=== PATIENT | male | born 1970 | race Caucasian/White ===

== ENCOUNTER 2016-09-21 13:07 | Inpatient (IN) | payer OTHER ==
[2016-09-21] MEDS ORDERED: HEPARIN/ 0.45% NACL-25,000 UNIT/500 ML 500 ML ONE (13:08)
[2016-09-21] MEDS ORDERED: ZOFRAN IV ONE (13:17)
[2016-09-21] MEDS ORDERED: NITRO-BID 2% TP ONE (13:17)
[2016-09-21] MEDS ORDERED: MORPHINE IV ONE (13:17)
[2016-09-21 13:23] LABS: Basophils % (Auto) 0.1 % (0.0-1.8); Eosinophils % (Auto) 0.6 % (0.0-4.3); Hematocrit 41.4 % (35.5-45.6); Hemoglobin 13.5 gm/dl (11.8-15.2); Mean Corpuscular HGB Conc 33 % (32-34); Mean Corpuscular Hemoglobin 28 pg (28-32); Mean Corpuscular Volume 87 fl (84-94); Platelet Count 223 K/mm3 (140-440); Red Blood Count 4.79 M/mm3 (3.65-5.03); Red Cell Distribution Width 13.5 % (13.2-15.2); White Blood Count 8.6 K/mm3 (4.5-11.0)
--- NOTE | 2016-09-21 13:23 | Emergency Department Report ---
HPI - General Chief Complaint: Chest Pain Time Seen by Provider: 09/21/16 13:16 - HPI HPI: Room 23 The patient is a 46-year-old male presenting with a chief complaint of chest pain. The patient states approximately 3-4 hours ago he developed substernal chest pain that was sharp in nature. Patient states she had numbness in both hands and intermittent sharp shooting pain down both lower extremities. The patient states he did get short of breath, and developed nausea with 2 episodes of vomiting. Patient denies diaphoresis. The patient states his pain is currently a 5/10. Patient was seen initially at [facility]. The ED physician at [place] had attempted to send the patient to [facility] however the control panel builder already had a patient on the table at the [facility]. The control panel builder subsequently spoke with Dr. Yokasta castro at [facility]. 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) Additional medical history: recurrent herpes simplex labialis, lumbosacral spondylosis, LVH, - Surgical History Past Surgical History?: Yes Additional Surgical History: lumbar fusion - Family History Family history: no significant - Social History Smoking Status: Never Smoker - Medications Home Medications: Home Medications Medication Instructions Recorded Confirmed Last Taken Type Hydrochlorothiazide [HCTZ] 25 mg PO QDAY 09/21/16 09/21/16 1 Day Ago History amLODIPine [Norvasc] 10 mg PO DAILY 09/21/16 09/21/16 1 Day Ago History ED Review of Systems ROS: Stated complaint: STEMI ALERT Other details as noted in HPI Comment: All other systems reviewed and negative Constitutional: denies: chills, diaphoresis, fever Eyes: denies: eye pain, eye discharge, vision change ENT: denies: ear pain, throat pain Respiratory: shortness of breath Cardiovascular: chest pain Endocrine: no symptoms reported Gastrointestinal: nausea, vomiting Genitourinary: denies: urgency, dysuria Musculoskeletal: denies: back pain, joint swelling, arthralgia Skin: denies: rash, lesions Neurological: denies: headache, weakness, paresthesias Psychiatric: denies: anxiety, depression Hematological/Lymphatic: denies: easy bleeding, easy bruising Physical Exam - Physical Exam Vital Signs: Vital Signs 09/21/16 13:09 Temperature 98 F Pulse Rate 91 H Respiratory 16 Rate Blood Pressure 132/88 O2 Sat by Pulse 100 Oximetry Physical Exam: GENERAL: The patient is well-developed well-nourished male lying on stretcher appearing to be in mild discomfort. [] HEENT: Normocephalic. Atraumatic. Extraocular motions are intact. Patient has moist mucous membranes. NECK: Supple. Trachea midline CHEST/LUNGS: Clear to auscultation. There is no respiratory distress noted. HEART/CARDIOVASCULAR: Regular. There is no tachycardia. There is no gallop rub or murmur. ABDOMEN: Abdomen is soft, nontender. Patient has normal bowel sounds. There is no abdominal distention. SKIN: There is no rash. There is no edema. There is no diaphoresis. NEURO: The patient is awake, alert, and oriented. The patient is cooperative. The patient has normal speech MUSCULOSKELETAL: There is no evidence of acute injury. ED Course Vital Signs 09/21/16 13:09 Temperature 98 F Pulse Rate 91 H Respiratory 16 Rate Blood Pressure 132/88 O2 Sat by Pulse 100 Oximetry - Consultations Consultation #1: 09/21/16 13:[address] Templeton. States he is reviewed the EKGs performed at [facility] today as well as the patient's previous EKG and EMS EKG. States does not believe it represents a STEMI. Requests an update when labs are resulted ED Medical Decision Making - Lab Data Result diagrams: 09/21/16 13:11 09/21/16 13:11 Laboratory Tests 09/21/16 09/21/16 09/21/16 13:11 13:11 13:11 WBC 8.6 RBC 4.79 Hgb 13.5 Hct 41.4 MCV 87 MCH 28 MCHC 33 RDW 13.5 Plt Count 223 Lymph % (Auto) 6.0 L [place] % (Auto) 6.5 Eos % (Auto) 0.6 Baso % (Auto) 0.1 Lymph # 0.5 L [place] # 0.6 Eos # 0.0 Baso # 0.0 Seg Neutrophils % 86.8 H Seg Neutrophils # 7.5 PT 14.3 INR 1.12 Sodium 140 Potassium 4.0 Chloride 101.5 Carbon Dioxide 26 Anion Gap 17 BUN 13 Creatinine 0.8 Estimated GFR > 60 BUN/Creatinine Ratio 16.25 Glucose 91 Calcium 8.8 Total Creatine Kinase 240 H CK-MB (CK-2) 2.4 CK-MB (CK-2) Rel Index 1.0 Troponin T < 0.010 NT-Pro-B Natriuret Pep 23.78 - EKG Data -: EKG Interpreted by Me EKG shows normal: sinus rhythm Rate: normal - EKG Data When compared to previous EKG there are: no significant change Interpretation: unchanged when compared t (09/07/2014 (from [facility])) - Radiology Data Radiology results: report reviewed (CT chest), image reviewed (CT chest) CT chest (read by radiologist)-no evidence for pulmonary embolus. Unremarkable CT chest with contrast. - Differential Diagnosis ACS, non-STEMI, pericarditis, aortic dissection Critical care attestation.: If time is entered above; I have spent that time in minutes in the direct care of this critically ill patient, excluding procedure time. ED Disposition Clinical Impression: Acute chest pain Disposition: OP ADMITTED IP TO THIS HOSP Is pt being admited?: Yes Does the pt Need Aspirin: Yes Condition: Fair Instructions: Chest Pain (ED) Referrals: PRIMARY CARE, [Primary Care Provider] - 3-5 Days Time of Disposition: 14:46 (hospitalist paged)
[2016-09-21] MEDS ORDERED: MORPHINE ONE (13:27)
[2016-09-21 13:34] LABS: INR 1.12 (0.87-1.13)
[2016-09-21 13:39] LABS: Creatine Kinase MB 2.4 ng/mL (0.0-4.0)
[2016-09-21 13:42] LABS: Anion Gap 17 mmol/L; BUN/Creatinine Ratio 16.25; Blood Urea Nitrogen 13 mg/dL (9-20); Calcium 8.8 mg/dL (8.4-10.2); Carbon Dioxide 26 mmol/L (22-30); Chloride 101.5 mmol/L (98-107); Creatine Kinase 240 units/L (55-170); Glucose 91 mg/dL (75-100); Sodium 140 mmol/L (137-145)
[2016-09-21 13:48] LABS: Partial Thromboplastin Time < 20.0 Sec. (24.2-36.6)
--- NOTE | 2016-09-21 13:49 | Admit Criteria Form ---
Admission Criteria Documentation: CARDIOLOGY GRG Clinical Indications for Admission to Inpatient Care ( Place 'X' for any and all applicable criteria): Hospital admission is needed for appropriate care of the patient because of ANY ONE of the following (1): [ ] I. Hemodynamic instability as indicated by ALL of the following (1)(2)(3) (4)(5) [ ]a) Vital signs or other findings not as expected for chronic patient condition or baseline [ ]b) Instability indicated by ANY ONE of the following: [ ]i) Hypotension [ ]ii) Symptomatic Tachycardia unresponsive to treatment ( e.g., analgesia, fluids, sedation as indicated) [ ]iii) Inadequate perfusion indicated by ANY ONE of the following: [ ] 1) Lactic acidosis (> 2 mmol/L) [ ] 2) New abnormal capillary refill (> 3 seconds) [ ] 3) Reduced urine output [ ] 4) New altered mental status [ ]iv) Orthostatic vital sign changes unresponsive to treatment (e.g., fluids) [ ]v) IV inotropic or vasopressor medication required to maintain adequate blood pressure or perfusion [ ] II. Severe heart failure as indicated by ANY ONE of the following(17)(18) [ ]a) Respiratory distress [ ]b) Hypotension [ ]c) Anasarca (refractory to outpatient therapy) [ ]d) Cardiac arrhythmias of immediate concern [ ]e) Myocardial ischemia [ ] III. Cardiac arrhythmias or findings of immediate concern indicated by ANY ONE of the following (19)(20): [ ] a) Heart rhythms that are inherently dangerous or unstable indicated by ANY ONE of the following (21)(22)(23): [ ] i) Resuscitated ventricular fibrillation or cardiac arrest [ ] ii) Ventricular escape rhythm [ ] iii) Sustained ventricular tachycardia (30 seconds or more of ventricular rhythm at greater than 100 beats per minute) [ ] iv) Nonsustained ventricular tachycardia and ANY ONE of the following: [ ] 1) Suspected cardiac ischemia as cause or consequence of ventricular tachycardia [ ] 2) In setting of acute myocarditis [ ] b) Unstable cardiac conduction defects indicated by ANY ONE of the following(23)(24)(25) [ ] i) Type II second-degree atrioventricular block [ ]ii) Third-degree atrioventricular block [ ]iii) New-onset left bundle branch block with suspected myocardial ischemia [ ]c) Any heart rhythm and ANY ONE of the following (21)(22)(26)(27) (28) [ ] i) Continuous long-term ECG monitoring needed (e.g., initiation of drug requiring monitoring for more than 24 hours) [ ] ii) Patient has automatic implanted cardioverter defibrillator that is repeatedly firing, malfunctioning, or in need of immediate adjustment of settings beyond the scope of ambulatory or observation care [ ]d) Heart rhythms of concern due to ANY ONE of the following: [ ] i) Hypotension [ ] ii) Respiratory distress [ ] iii) Association with other significant symptoms (e.g., bradycardia with syncope or ongoing dizziness, supraventricular tachycardia with chest pain (14)(15)(17) [ ] IV. Monitoring for cardiac contusion beyond the scope of observation care needed [A](30)(31)(32) [ ] V. Surgical or device complication (e.g., valve replacement complication , pacemaker dysfunction) (35)(41)(44)(45)(46) [ ] . Inpatient palliative care needed. [B](49) Also use Inpatient Palliative Care Criteria [ ] VII. Nonbacterial thrombotic (marantic) endocarditis (36)(43)(47)(48) [X ] VIII. Cardiology condition, symptom, or finding for which emergency and observation care has failed or are not considered appropriate. [ ] IX. Acute valvular disease requiring inpatient as indicated by ANY ONE of the following (41) [ ]a) Acute valvular regurgitation (42) [ ]b) Noninfectious valvulitis (43) [ ]c) Obstructive valve thrombosis [ ]d) Paravalvular leak [ ]e) Other significant valvular disorder remaining after emergency or observation level of care (as appropriate) [ ]X. Pericardial disease requiring inpatient treatment as indicated by ANY ONE of the following (33)(34)(35)(36)(37) [ ]a) Suspected tamponade (38)(39)(40) [ ]b) Hemopericardium [ ]c) Other significant pericardial disorder remaining after emergency or observation level of care (as appropriate) [ ] XI. Cardiac ischemia beyond scope of emergency and observation care. [ ] XII. Hypertension requiring inpatient treatment as indicated by ANY ONE of the following (6)(7)(8) [ ]a) SBP greater than 220 mm Hg or DBP greater than 120 mmHg despite treatment [ ]b) SBP greater than 140 mm Hg or DBP greater than 100 mm Hg with evidence of acute end organ damage as indicated by ANY ONE of the following [ ] i) Altered mental status [ ] ii) Acute renal failure as indicated by new onset of ANY ONE of the following (9)(10)(11)(12)(13) [ ]1) 3-fold rise in serum creatinine from baseline [ ]2) Serum creatinine greater than 4 mg/dL ( 354 micromoles/L) with acute rise greater than 0.5 mg/dL (44.2 micromoles/L) [ ]3) Reduction of more than 75% in estimated glomerular filtration rate from baseline [ ]4) Estimated glomerular filtration rate less than 35 mL/min/1.73m2 (0.59 mL/sec/1.73m2) in child up to 18 years of age [ ]5) Cessation of urine output indicated by ALL of the following [ ]A. Adequate volume status [ ]B. Inadequate urine output as indicated by ANY ONE of the following [ ]a. Urine output less than 0.3 mL/kg/hr for 24 hours [ ]b. Anuria (urine output less than 0.1 mL/kg/hr) for 12 hours [ ] iii) Aortic dissection [ ] iv) Myocardial Ischemia [ ] v) Left ventricular heart failure [ ]vi) Retinal Hemorrhage [ ]vii) Other significant finding [ ]c) Hypertension in child requiring inpatient treatment as indicated by ALL of the following(14)(15)(16) [ ] i) Outpatient treatment not effective, not available, or not appropriate [ ]ii) SBP or DBP greater than 95th percentile for age [ ]iii) Evidence of acute end organ damage as indicated by ANY ONE of the following [ ]1) Altered mental status [ ]2) Acute renal failure as indicated by new onset of ANY ONE of the following(9)(10)(11)(12)(13) [ ]A. 3-fold rise in serum creatinine from baseline [ ]B. Serum creatinine greater than 4 mg/dL (354 micromoles/L) with acute rise greater than 0.5 mg/dL (44.2 micromoles/L) [ ]C. Reduction of more than 75% in estimated glomerular filtration rate from baseline [ ]D. Estimated glomerular filtration rate less than 35 mL/min/1.73m2 (0.59 mL/sec/1.73m2) in child up to 18 years of age [ ]E. Cessation of urine output indicated by ALL of the following [ ]a. Adequate volume status [ ]b. Inadequate urine output as indicated by ANY ONE of the following [ ]i) Urine output less than 0.3 mL/kg/hr for 24 hours [ ]ii) Anuria ( urine output less than 0.1 mL/kg/hr) for 12 hours [ ]3) Severe headache [ ]4) Visual disturbance [ ]5) Retinal hemorrhage [ ]6) Other significant finding [ ]XIII. Complications of transplanted heart indicated by ANY ONE of the following(61): [ ]a) Acute graft rejection requiring inpatient management (eg, intravenous immunosuppression)(62)(63) [ ]b) Acute graft heart failure indicated by ANY ONE of the following(64): [ ]i) Hemodynamic instability [ ]ii) Cardiac arrhythmias of immediate concern [ ]iii) Pulmonary edema that is very severe (eg, mechanical ventilation needed, imminent or likely, need for 100% oxygen to keep oxygen saturation above 90%) [ ]iv) Pulmonary edema that is persistent as indicated by ALL of the following: [ ]1) New need for oxygen therapy to keep oxygen saturation above 90% (or increased FiO2 need from baseline) [ ]2) Has not improved sufficiently with emergency department or observation care IV diuretics or other heart failure treatments[E] [ ]v) Altered mental status that is severe or persistent [ ]vi) Increased creatinine (new on laboratory test) with reduction of more than 50% in estimated glomerular filtration rate from baseline [ ]vii) Progressively (ongoing) rising creatinine (known from past laboratory test) with reduction of more than 25% in estimated glomerular filtration rate from baseline [ ]viii) Acute renal failure [ ]ix) Acute peripheral ischemia (eg, examination shows pulseless, cool, mottled, or cyanotic extremity) [ ]x) Pulmonary artery catheter monitoring needed [ ]xi) Other sign or symptom of heart failure requiring inpatient treatment (ie, too severe or not responsive to outpatient and observation care treatment) [ ]c) Infection requiring inpatient management (eg, Hemodynamic instability, need for intravenous antimicrobial treatment)(66)(67)(68)(69)(70) [ ]d) Cardiac allograft vasculopathy requiring inpatient management ( eg evidence of cardiac ischemia)(71) [ ]e) Other complication of transplanted heart (eg, stroke, severe pulmonary hypertension, severe valvular dysfunction) requiring inpatient management(72) The original [facility] [employer] content created by [facility] [employer]now [employer] has been revised. The portions of the content which have been revised are identified through the use of italic text or in bold, and [facility] has neither reviewed nor approved the modified material. All other unmodified content is copyright [facility] [employer]. Please see references footnoted in the original [facility] [employer] edition 2016
[2016-09-21] MEDS ORDERED: SUBLIMAZE ONE (14:35)
[2016-09-21] MEDS ORDERED: PEPCID IV ONE (14:37)
[2016-09-21] MEDS ORDERED: SUBLIMAZE IV ONE (14:37)
--- NOTE | 2016-09-21 14:43 | Cat Scan Report ---
CTA CHEST: History: Chest pain. Technique: Helical CT following IV contrast. Pulmonary embolus protocol. Sagittal and coronal reformatted images. Rotational MIP images. Findings: Contrast bolus is satisfactory. No pulmonary embolus is identified. The thyroid gland, tracheobronchial tree, esophagus, heart, pericardium, mediastinal vessels, lung odonnell and bony thorax are unremarkable. Impression: No evidence for pulmonary embolus. Unremarkable CT chest with contrast.
[2016-09-21] MEDS ORDERED: ALUM-MAG HYDROX-SIMETH 200-200-20MG/5ML ONE (14:47)
[2016-09-21] MEDS ORDERED: LIDOCAINE VISCOUS 2% ONE ×2 (14:47→19:29)
--- NOTE | 2016-09-21 14:50 | Consultation ---
Addendum entered and electronically signed by CLARKE POPE MD 09/21/16 17:47 : This patient's a 46-year-old man with a history of hypertension, patient of [facility]. He was transferred to the emergency room today, for further evaluation of chest pain and abnormal EKG. His chest pain is atypical, substernal but nonexertional, no associated shortness of breath, no palpitations. He is very physically active and has had no recent chest pain or exercise intolerance until this morning when he developed the pain. We reviewed his serial ECGs. He has a normal sinus rhythm, with left ventricular hypertrophy. There is early repolarization changes, affecting predominantly the lateral leads 1 and aVL. ECGs were compared to his historical ECG from 2015, and there are no significant changes. CT a of the chest, was negative for pulmonary embolism, and otherwise unremarkable. Initial cardiac enzymes were normal. Recommendations: Chest pain is atypical, differential diagnosis includes gastroesophageal reflux , musculoskeletal chest pain. In addition to acid reflux therapy, we'll also recommend a rule out [place] protocol. A thallium stress test be planned rule out [place] protocol is negative. Original Note: History of Present Illness Consult date: 09/21/16 Consult reason: chest pain History of present illness: This is a 46yr old male who presents to the ED with complaints of chest pain. Patient reports sharp mid sternal chest pain that's has been ongoing for several hours. He denies worsening chest pain on exertion. He was seen by his physician at [facility] today and advised to come to the ED for evaluation. He reports a history of Hypertension. There is no history of coronary disease. He denies tobacco abuse. His ECG shows a sinus rhythm with early repolarization. No change from prior ECG done a 2 years ago. First set of cardiac enzymes are normal. Cardiology consultation requested for further evaluation. Medications and Allergies Allergies Allergy/AdvReac Type Severity Reaction Status Date / Time acetaminophen [From Percocet] Allergy Unknown Verified 09/21/16 13:17 oxycodone HCl [From Percocet] Allergy Unknown Verified 09/21/16 13:17 Home Medications Medication Instructions Recorded Confirmed Last Taken Type Hydrochlorothiazide [HCTZ] 25 mg PO QDAY 09/21/16 09/21/16 1 Day Ago History amLODIPine [Norvasc] 10 mg PO DAILY 09/21/16 09/21/16 1 Day Ago History Physical Examination Vital Signs Temp Pulse Resp BP Pulse Ox 98 F 91 H 16 132/88 100 09/21/16 13:09 09/21/16 13:09 09/21/16 13:09 09/21/16 13:09 09/21/16 13:09 General appearance: mild distress HEENT: Positive: PERRL Neck: Positive: trachea midline Cardiac: Positive: Reg Rate and Rhythm Lungs: Positive: Decreased Breath Sounds Neuro: Positive: Grossly Intact Extremities: Absent: edema Results 09/21/16 13:11 09/21/16 13:11 Cardiac Enzymes 09/21/16 Range/Units 13:11 CK-MB (CK-2) 2.4 (0.0-4.0) ng/mL Coagulation 09/21/16 Range/Units 13:11 PT 14.3 (12.2-14.9) Sec. INR 1.12 (0.87-1.13) APTT < 20.0 L (24.2-36.6) Sec. CBC 09/21/16 Range/Units 13:11 WBC 8.6 (4.5-11.0) K/mm3 RBC 4.79 (3.65-5.03) M/mm3 Hgb 13.5 (11.8-15.2) gm/dl Hct 41.4 (35.5-45.6) % Plt Count 223 (140-440) K/mm3 Lymph # 0.5 L (1.2-5.4) K/mm3 [place] # 0.6 (0.0-0.8) K/mm3 Eos # 0.0 (0.0-0.4) K/mm3 Baso # 0.0 (0.0-0.1) K/mm3 Comprehensive Metabolic Panel 09/21/16 Range/Units 13:11 Sodium 140 (137-145) mmol/L Potassium 4.0 (3.6-5.0) mmol/L Chloride 101.5 (98-107) mmol/L Carbon Dioxide 26 (22-30) mmol/L BUN 13 (9-20) mg/dL Creatinine 0.8 (0.8-1.5) mg/dL Glucose 91 (75-100) mg/dL Calcium 8.8 (8.4-10.2) mg/dL EKG interpretations - Telemetry EKG Rhythm: Sinus Rhythm Assessment and Plan Chest pain first set of cardiac enzymes are normal Hypertension Recommend: Rule out PE protocol. Cycle cardiac enzymes.
[2016-09-21] MEDS ORDERED: REGLAN ONE (14:52)
[2016-09-21] MEDS ORDERED: REGLAN IV ONE (14:54)
[2016-09-21] MEDS ORDERED: LIDOCAINE VISCOUS 2% PO ONE (14:59)
[2016-09-21] MEDS ORDERED: ALUM-MAG HYDROX-SIMETH 200-200-20MG/5ML PO ONE (15:00)
--- NOTE | 2016-09-21 16:46 | History and Physical Report ---
History of Present Illness Date of examination: 09/21/16 Date of admission: 09/21/16 Chief complaint: chest pain this morning History of present illness: Mr Muñoz is a 46 yo AAM presented to the emergency room with central chest pain, 8 out of 10, no radiation, no aggravating or relieving factors, intermittent and sticking in nature. He also had several episodes of nausea and vomiting since this morning. Admits to having some mild upper abdominal pain. Of note he's been taking Advil on and off for a while now for back pain. He also had some shortness of breath while he had the pain. No palpitations. No diaphoresis. He was initially seen at [facility] and sent to the ER for evaluation of an STEMI based on his EKG. He was seen in the emergency room by the herbarium worker and it was felt that she had LVH with repolarization changes. At the time of evaluation he had no chest pain but vomited during the evaluation. He reported that he had a stress test about a year ago for evaluation of chest pain which was normal then. No history of heart attacks in the past. Past History Past Medical History: hypertension Past Surgical History: Other (back) Social history: full code. denies: smoking, alcohol abuse, prescription drug abuse, IV drug use Family history: hypertension Medications and Allergies Allergies Allergy/AdvReac Type Severity Reaction Status Date / Time acetaminophen [From Percocet] Allergy Unknown Verified 09/21/16 13:17 oxycodone HCl [From Percocet] Allergy Unknown Verified 09/21/16 13:17 Home Medications Medication Instructions Recorded Confirmed Last Taken Type Hydrochlorothiazide [HCTZ] 25 mg PO QDAY 09/21/16 09/21/16 1 Day Ago History amLODIPine [Norvasc] 10 mg PO DAILY 09/21/16 09/21/16 1 Day Ago History Review of Systems All systems: negative Constitutional: no weight loss, no weight gain, no fever, no anorexia, no fatigue, no weakness Ears, nose, mouth and throat: no ear pain, no ear discharge, no tinnitis, no decreased hearing, no nose pain Cardiovascular: no chest pain, no orthopnea, no palpitations, no rapid/ irregular heart beat Respiratory: no cough, no cough with sputum, no excessive sputum, no hemoptysis Gastrointestinal: abdominal pain, nausea, vomiting Genitourinary Male: no dysuria, no hematuria, no flank pain, no discharge Rectal: no pain, no incontinence, no bleeding Musculoskeletal: no neck stiffness, no neck pain, no shooting arm pain, no arm numbness/tingling Integumentary: no rash, no pruritis, no redness, no sores Neurological: no head injury, no transient paralysis, no paralysis, no weakness , no parathesias Psychiatric: no anxiety, no memory loss, no change in sleep habits, no sleep disturbances Endocrine: no cold intolerance, no heat intolerance, no polyphagia, no excessive thirst Hematologic/Lymphatic: no easy bruising, no easy bleeding Allergic/Immunologic: no urticaria, no allergic rhinitis Exam - Constitutional Vitals: Temp Pulse Resp BP Pulse Ox 98 F 83 15 144/94 99 09/21/16 13:09 09/21/16 14:30 09/21/16 14:30 09/21/16 16:18 09/21/16 14:30 General appearance: Present: no acute distress, well-nourished - EENT Eyes: Present: PERRL, EOM intact. Absent: scleral icterus, conjunctival injection ENT: hearing intact, clear oral mucosa, no oropharyngeal erythema, no poor dentition - Neck Neck: Present: supple, normal ROM. Absent: enlarged thyroid, masses or JVD - Respiratory Respiratory effort: normal Respiratory: negative: diminished, rales, rhonchi, wheezing - Cardiovascular Rhythm: regular Heart Sounds: Present: S1 & S2. Absent: gallop - Extremities Extremities: no ischemia, pulses intact, pulses symmetrical Peripheral Pulses: within normal limits - Abdominal General gastrointestinal: Present: soft, tender (epigasatrium), non-distended, normal bowel sounds Male genitourinary: Present: deferred - Rectal Rectal Exam: deferred - Integumentary Integumentary: Present: clear - Musculoskeletal Musculoskeletal: strength equal bilaterally - Psychiatric Psychiatric: appropriate mood/affect, intact judgment & insight, cooperative - Neurologic Neurologic: CNII-XII intact, moves all extremities Results - Labs CBC & Chem 7: 09/21/16 13:11 09/21/16 13:11 Labs: Abnormal lab results 09/21/16 09/21/16 09/21/16 Range/Units 13:11 13:11 13:11 Lymph % (Auto) 6.0 L (13.4-35.0) % Lymph # 0.5 L (1.2-5.4) K/mm3 Seg Neutrophils % 86.8 H (40.0-70.0) % APTT < 20.0 L (24.2-36.6) Sec. Total Creatine Kinase 240 H (55-170) units/L - Imaging and Cardiology EKG: image reviewed (LVH with repolarization ) CT scan - chest: report reviewed (no PE; unremarkable) Assessment and Plan 1. Atypical chest pain - rule out acute coronary syndrome versus gastric pathology. We'll admit as inpatient as more than 2 midnights are required for treatment. We'll follow-up with serial cardiac enzymes. We'll check lipid panel and echocardiogram. We'll follow-up with cardiology consultation to determine if stress test is indicated. Nitroglycerin as needed for pain. IV Dilaudid as patient reports that he cannot take IV morphine 2. Possible gastritis / duodenitis/ duodenal ucler - history of NSAID use, will put patient on IV antiemetic and IV PPI. We'll consult GI 3. Benign hypertension-restart home medications; 2gm NA diet as tolerated 4. DVT Prophylaxis-lovenox
[2016-09-21] MEDS ORDERED: PHENERGAN PR PRN (17:04)
[2016-09-21] MEDS ORDERED: DILAUDID ONE (17:14)
[2016-09-21] MEDS ORDERED: SODIUM CHLORIDE FLUSH SYRINGE 10 ML IV PRN (17:15)
[2016-09-21] MEDS ORDERED: NITROSTAT SL PRN (17:15)
[2016-09-21] MEDS ORDERED: REGLAN IV PRN (17:15)
[2016-09-21] MEDS: DILAUDID IV PRN (17:20)
[2016-09-21 20:45] LABS: Creatine Kinase MB 1.6 ng/mL (0.0-4.0)
[2016-09-21 20:46] LABS: Creatine Kinase 182 units/L (55-170)
[2016-09-21] MEDS: ZOFRAN IV PRN (22:55)
[2016-09-22 01:31] LABS: Creatine Kinase 158 units/L (55-170); Creatine Kinase MB 1.2 ng/mL (0.0-4.0)
--- NOTE | 2016-09-22 07:49 | Gastroenterology Consultation ---
History of Present Illness - Reason for Consult Consult date: 09/22/16 Chest pain/upper abdominal pain Requesting physician: HELEN SIERRA - History of Present Illness 46yo man admitted with chest pain, upper abdominal pain, nausea/vomiting. CE's neg x 3 today, awaiting stress test today. Pt mentions that he has had upper abdominal pain for "a long time." He denies any heartburn, difficulty swallowing and states that he saw an outside GI years back. Mr. Muñoz has also been taking various NSAIDS for headaches, including Advil/Goody's Powders. No black stools, BRBPR. No weight loss, fevers, chills, night sweats. No CP/ SOB at this time. Past History Past Medical History: hypertension Past Surgical History: Other (back) Social history: full code. denies: smoking, alcohol abuse, prescription drug abuse, IV drug use Family history: hypertension Medications and Allergies Allergies Allergy/AdvReac Type Severity Reaction Status Date / Time acetaminophen [From Percocet] Allergy Unknown Verified 09/21/16 13:17 oxycodone HCl [From Percocet] Allergy Unknown Verified 09/21/16 13:17 Home Medications Medication Instructions Recorded Confirmed Last Taken Type Hydrochlorothiazide [HCTZ] 25 mg PO QDAY 09/21/16 09/21/16 1 Day Ago History amLODIPine [Norvasc] 10 mg PO DAILY 09/21/16 09/21/16 1 Day Ago History Active Meds: Active Medications Amlodipine Besylate (Norvasc) 10 mg PO DAILY [facility] Aspirin (Ecotrin) 325 mg PO QDAY CHET Enoxaparin Sodium (Lovenox) 40 mg SUB-Q QDAY CHET Hydrochlorothiazide (Hctz) 25 mg PO QDAY [facility] Hydromorphone HCl (Dilaudid) 1 mg IV Q4H PRN PRN Reason: Pain , Severe (7-10) Last Admin: 09/21/16 17:20 Dose: 1 mg Ketorolac Tromethamine (Toradol) 15 mg IV Q6HR CHET Stop: 09/27/16 07:59 Metoclopramide HCl (Reglan) 10 mg IV Q6H PRN PRN Reason: Nausea And Vomiting Nitroglycerin (Nitrostat) 0.4 mg SL Q5M PRN PRN Reason: Chest Pain Ondansetron HCl (Zofran) 4 mg IV Q4H PRN PRN Reason: Nausea And Vomiting Last Admin: 09/21/16 22:55 Dose: 4 mg Pantoprazole Sodium (Protonix) 40 mg PO QDAY CHET Promethazine HCl (Phenergan) 50 mg [place] Q6H PRN PRN Reason: Nausea And Vomiting Sodium Chloride (Sodium Chloride Flush Syringe 10 Ml) 10 ml IV PRN PRN PRN Reason: LINE FLUSH Review of Systems - Review of Systems All systems: negative (initial CP, abd pain, N/V) Exam - Constitutional Vital Signs: Temp Pulse Resp BP Pulse Ox 98.6 F 78 20 112/76 98 09/22/16 07:00 09/22/16 07:00 09/22/16 07:00 09/22/16 07:00 09/22/16 07:00 General appearance: no acute distress - EENT Eyes: PERRL - Neck Neck: supple - Respiratory Respiratory: bilateral: CTA - Cardiovascular Rhythm: regular Heart Sounds: Present: S1 & S2 Extremities: No edema - Gastrointestinal General gastrointestinal: Present: soft, non-tender, non-distended, normal bowel sounds - Integumentary Integumentary: Present: clear - Neurologic Neurological: alert and oriented x3 - Psychiatric Psychiatric: appropriate mood/affect - Labs CBC & Chem 7: 09/21/16 13:11 09/21/16 13:11 Lab Results: Laboratory Results - last 24 hr 09/21/16 09/22/16 19:49 00:46 Total Creatine Kinase 182 H 158 CK-MB (CK-2) 1.6 1.2 CK-MB (CK-2) Rel Index 0.8 0.7 Troponin T < 0.010 < 0.010 Assessment and Plan 46yo man admitted with chest pain, upper abdominal pain, nausea/vomiting. CE's neg x 3, but still awaiting stress test. No further symptoms at this time. This may represent atypical CP and he may have gastritis/esophagitis/PUD/GERD. Rec: 1) Would give empiric trial of PPI 2) Given resolution of symptoms, no evidence of bleeding, would not opt to keep him hospitalized for endoscopic procedures. If he fails to respond to the PPI, he may undergo an EGD through [place] I will sign off, but please re-call with any questions. Thank you!
[2016-09-22] MEDS: TORADOL IV SCH ×2 (08:05→13:19)
[2016-09-22] MEDS ORDERED: LEXISCAN IV ONE ×2 (09:58→10:01)
[2016-09-22] MEDS ORDERED: PEPCID IV SCH (10:00)
[2016-09-22] MEDS ORDERED: PROTONIX PO SCH (10:00)
[2016-09-22] MEDS ORDERED: LOVENOX SUB-Q SCH (10:00)
[2016-09-22] MEDS ORDERED: NORVASC PO SCH (10:00)
[2016-09-22] MEDS ORDERED: ECOTRIN PO SCH (10:00)
[2016-09-22] MEDS ORDERED: HCTZ PO SCH (10:00)
--- NOTE | 2016-09-22 11:49 | Echocardiography Report ---
Transthoracic Echocardiogram BP: 112/76 Conclusions *The left ventricular chamber size, wall thickness and systolic function are within normal limits. There are no wall motion abnormalities observed. Ejection fraction is normal. *The estimated ejection fraction is 60-65%. *The right atrium is mildly dilated. *No atrial septal defected is demonstrated by agitated saline contrast. Findings Procedure Info: The study quality is good. Left Ventricle: The left ventricular chamber size, wall thickness and systolic function are within normal limits. There are no wall motion abnormalities observed. Ejection fraction is normal. The estimated ejection fraction is 60-65%. Left Atrium: The left atrial chamber size is normal. Right Ventricle: The right ventricular chamber size and systolic function are within normal limits. Right Atrium: The right atrium is mildly dilated. No atrial septal defected is demonstrated by agitated saline contrast. Aortic Valve: The aortic valve is trileaflet. The leaflets are thin with normal excursion. There is no aortic stenosis or regurgitation present. Mitral Valve: The mitral valve appears normal in structure and function. Tricuspid Valve: The tricuspid valve appears normal in structure and function. Pulmonic Valve: The pulmonic valve appears normal in structure and function. Pericardium: There is no pericardial effusion. Aorta: The aorta appears normal. Venous: The inferior vena cava appears normal. Measurements Chambers MM Name Value Normal Range Ao root diameter (MM) 3.3 cm (2 - 3.7) LA dimension (AP) MM 4.5 cm (1.9 - 4) LA:Ao ratio (MM) 1.36 ratio - AV cusp separation (MM) 1.9 cm (1.5 - 2.6) Chambers 2D Name Value Normal Range RVIDd (AP) 2D 3.27 cm (0.9 - 2.6) IVSd (2D) 1.23 cm (0.6 - 1.1) LVPWd (2D) 1.26 cm (0.6 - 1.1) IVS:LVPW ratio (2D) 0.98 ratio - LVIDd (2D) 5.11 cm (3.7 - 5.6) LVIDs (2D) 3.63 cm (2 - 3.8) LV FS (Teichholz) (2D) 29 % - LV FS (cube) (2D) 29 % - EF Teichholz (2D) 55.2 % - LA dimension (AP) 2D 4.6 cm (1.9 - 4) Volumes/Mass Name Value Normal Range LA ESV SP 4CH (MOD) 55 ml - LA ESV SP 2CH (MOD) 64 ml - LA ESV BP (MOD) 61 ml - LA ESV BP (MOD) index 26.8 ml/m2 - LV EDV SP 4CH (MOD) 67 ml - LV ESV SP 4CH (MOD) 29 ml - EF SP 4CH (MOD) 57 % - LV EDV SP 2CH (MOD) 87 ml - LV ESV SP 2CH (MOD) 37 ml - EF SP 2CH (MOD) 57 % - LV EDV BP 75 ml - LV ESV BP 33 ml - BP EF (MOD) 56 % - Diastolic/Systolic Function Name Value Normal Range MV E-wave Vmax 0.74 m/sec - MV deceleration time 169 msec - MV A-wave Vmax 0.67 m/sec - MV E:A ratio 1.1 ratio - LV septal e' Vmax 0.09 m/sec - LV lateral e' Vmax 0.11 m/sec - LV E:e' septal ratio 8.3 ratio - LV E:e' lateral ratio 6.8 ratio - Aortic Valve Name Value Normal Range AV VTI 31.1 cm - AV mean gradient 7 mmHg - LVOT diameter 2.3 cm - LVOT VTI 22.6 cm - LVOT mean gradient 3 mmHg - SV LVOT 94 ml - PRUEDNCIO (continuity VTI) 3.02 cm2 - Mitral Valve Name Value Normal Range MV PHT 46 msec - MVA (PHT) 4.78 cm2 - Tricuspid Valve Name Value Normal Range TR Vmax 2.36 m/sec - TR peak gradient 22 mmHg - Pulmonic Valve/Qp:Qs Name Value Normal Range PV Vmax 0.93 m/sec - PV peak gradient 3 mmHg - LA end-diastolic Vmax 0.81 m/sec - PV acceleration time 120 msec -
[2016-09-22] MEDS: DILAUDID IV PRN (13:09)
[2016-09-22] MEDS: ZOFRAN IV PRN (13:10)
--- NOTE | 2016-09-22 13:11 | Progress Note ---
Assessment and Plan Chest pain Normal LVEF Normal MPI Normal chest CT Hypertension Recommend: May go home No further cardiac intervention needed Subjective Date of service: 09/22/16 Principal diagnosis: Chest Pain Interval history: Lexiscan done - no complications Objective Vital Signs Temp Pulse Pulse Resp BP BP Pulse Ox 09/22/16 11:00 98.4 F 74 20 131/91 97 09/22/16 08:05 18 09/22/16 07:00 98.6 F 78 20 112/76 98 09/22/16 06:00 98.3 F 86 18 130/78 100 09/22/16 00:00 98.3 F 90 18 136/72 98 09/21/16 23:27 78 09/21/16 22:30 80 16 133/86 93 09/21/16 22:00 84 14 133/86 96 09/21/16 21:44 76 15 120/81 96 09/21/16 21:30 77 14 120/81 96 09/21/16 21:00 77 15 121/68 96 09/21/16 20:30 82 17 120/81 95 09/21/16 20:04 80 16 120/81 94 09/21/16 20:00 81 16 120/81 92 09/21/16 19:30 82 15 120/85 94 09/21/16 19:00 81 17 120/85 96 09/21/16 18:30 89 17 92/56 94 09/21/16 18:00 94 H 12 167/100 95 09/21/16 17:50 18 09/21/16 17:40 84 14 167/100 95 09/21/16 17:30 80 13 144/94 98 - Physical Examination HEENT: Positive: PERRL Neck: Positive: trachea midline Cardiac: Positive: Reg Rate and Rhythm Lungs: Positive: Normal Exam Neuro: Positive: Grossly Intact Extremities: Absent: edema - Labs and Meds Cardiac Enzymes 09/21/16 09/22/16 Range/Units 19:49 00:46 CK-MB (CK-2) 1.6 1.2 (0.0-4.0) ng/mL - Imaging and Cardiology EKG: image reviewed (LVH with repolarization )
--- NOTE | 2016-09-22 14:01 | Treadmill Report ---
INDICATION: Chest pain. FINDINGS: There is no scintigraphic evidence of myocardial ischemia. The left ventricle is normal in size and systolic function. The left ventricular ejection fraction is measured at 54% with normal wall motion and wall thickening noted on gated imaging. CONCLUSION: Normal perfusion scan. JOB# [id number] SOLEDAD/LESIA
[2016-09-22 15:27] VITALS: BP 128/70
--- NOTE | 2016-09-22 16:03 | Discharge Summary ---
Providers - Providers Date of Admission: 09/21/16 17:15 Attending physician: TAMAR FRANCO Primary care physician: POULTRY GRADER Hospitalization Condition: Fair Exam - Constitutional Vitals: Temp Pulse Resp BP Pulse Ox 97.8 F 74 20 128/70 97 09/22/16 15:00 09/22/16 15:00 09/22/16 15:00 09/22/16 15:00 09/22/16 15:00 Plan Follow up with: PRIMARY MIESHA, [Primary Care Provider] - 3-5 Days Prescriptions: Pantoprazole [Protonix] 40 mg PO BID #60 tablet
== END 2016-09-22 17:56 | disposition home or self-care (01) | DRG 313 ==
LOC: ED 13:07 → 4A 17:15
PROVIDERS: ADMIT Hospitalist; ATTEND Internal Medicine
DX: R07.89 Other chest pain (principal); F43.23 Adjustment disorder with mixed anxiety and depressed mood; I10 Essential (primary) hypertension; R10.10 Upper abdominal pain, unspecified; Z86.19 Personal history of other infectious and parasitic diseases; Z22.4 Carrier of infections with a predominantly sexual mode of transmission; Z98.1 Arthrodesis status; Z88.8 Allergy status to other drugs, medicaments and biological substances; Z82.49 Family history of ischemic heart disease and other diseases of the circulatory system; Z79.1 Long term (current) use of non-steroidal anti-inflammatories (NSAID)
CPT/HCPCS: 36415; 71275; 78452; 80048; 80061; 82550; 82553; 83880; 84484; 85025; 85610; 85730; 93005; 93010; 93017; 93306; 96374; 96375; 96376; A9502; J1170; J1644; J1650; J1885; J2270; J2405; J2765; J2785; J3010; Q9967